=== PATIENT | female | born 1940 | race Caucasian/White ===

== ENCOUNTER 2021-11-11 21:44 | Inpatient (IN) ==
[2021-11-11] MEDS ORDERED: ONDANSETRON 4 MG/2 ML VIAL IV STA (22:11)
[2021-11-11 22:32] LABS: PT Patient Result 10.7 SECS (10.5-12.0); Partial Thromboplastin Time < 20.0 SECS (23.8-32.1)
[2021-11-11 22:42] LABS: Albumin 3.7 G/DL (3.4-5.0); Bilirubin,Total 0.4 MG/DL (0.20-1.00); Calcium 8.5 MG/DL (8.5-10.1); Osmolality,Calculated 277.5 MOS/KG (273-304); Potassium 2.8 MMOL/L (3.5-5.1)
[2021-11-11 23:11] LABS: Basophils # 0.1 10*3/uL (0.0-0.2); Basophils % 0.5 % (0.0-0.8); Eosinophils # 0.1 10*3/uL (0.0-0.87); Eosinophils % 0.8 % (0.00-10.9); Hematocrit 36.9 VOL% (35.7-47.0); Hemoglobin 12.5 GM/DL (12.0-16.0); Immature Granulocytes % 0.5 %; Immature Granulocytes Absolute 0.07 #; Lymphocytes % 19.6 % (21.3-54.2); Mean Corpuscular HGB Conc 33.9 GM/DL (32-36); Mean Corpuscular Volume 97.6 FL (87-102); Mean Platelet Volume 11.3 FL (9.6-12.0); Monocytes % 7.5 % (1.7-12.7); Neutrophils % 71.1 % (38.7-73.9); Platelet Count 252 T/CUMM (130-400); Red Blood Count 3.78 MC/CUMM (3.8-5.5); Red Cell Distribution Width 12.9 % (9.3-17.3); White Blood Count 15.5 T/CUMM (4-12)
[2021-11-11] MEDS ORDERED: diphenhydrAMINE 50 MG/1 ML VIAL IV STA (23:35)
[2021-11-11] MEDS: POTASSIUM CHLORIDE 20 MEQ TABLET PO STA (23:40)
[2021-11-12] MEDS ORDERED: DOCUSATE SODIUM 100 MG CAPSULE PO PRN (00:57)
[2021-11-12] MEDS ORDERED: guaiFENesin/DM ER 600-30 MG TABLET PO PRN (00:57)
[2021-11-12] MEDS ORDERED: NICOTINE 21 MG/24 HR PATCH TRANSDERM PRN (00:57)
[2021-11-12] MEDS ORDERED: DEXTROSE 10% 250 ML BAG IV PRN (00:57)
[2021-11-12] MEDS ORDERED: GLUCAGON 1 MG VIAL IM PRN (00:57)
[2021-11-12] MEDS ORDERED: hydrALAZINE 20 MG/1 ML VIAL IV PRN (00:57)
[2021-11-12] MEDS ORDERED: diphenhydrAMINE CAP 25 MG CAPSULE PO PRN (00:57)
[2021-11-12] MEDS ORDERED: ACETAMINOPHEN 325 MG TABLET PO PRN (00:57)
[2021-11-12] MEDS ORDERED: ZALEPLON 5 MG CAPSULE PO PRN (00:57)
[2021-11-12] MEDS ORDERED: ENOXAPARIN 80 MG/0.8 ML SYRINGE SUBCUT STA (01:03)
[2021-11-12] MEDS ORDERED: LEVOFLOXACIN INJ 750 MG/150 ML PREMIX IV ONE (01:04)
[2021-11-12] MEDS: PROMETHAZINE 25 MG/1 ML VIAL IM PRN ×3 (01:22→16:32)
[2021-11-12] MEDS: POTASSIUM CHLORIDE RIDER 10 MEQ/100 ML PREMIX IV PRN ×3 (01:24→05:02)
[2021-11-12] MEDS: POTASSIUM CHLORIDE 20 MEQ TABLET PO STA (02:08)
[2021-11-12] MEDS: MORPHINE 2 MG/1 ML SYRINGE IV PRN ×2 (02:14→16:24)
[2021-11-12 03:49] LABS: Bacteria,Urine Few /HPF (Few); Hyaline Casts,Urine 1 /LPF (0-3); Mucus,Urine Occasional /LPF (Occasional); RBC,Urine <1 /HPF (0-4)
[2021-11-12 03:50] LABS: Bilirubin,Urine Negative (Negative); Blood, Urine Trace mg/dL (Negative); Glucose,Urine (UA) Negative (Negative); Ketones,Urine Negative (Negative); Nitrite,Urine Negative (Negative); Protein,Urine Negative (Negative); Urine Appearance SL CLOUDY (Clear); Urine Color Yellow (Yellow); Urine Urobilinogen 0.2 eU/dL (<2.0); Urine pH 5.5 (4.5-8.0)
[2021-11-12 05:34] LABS: Calcium 8.6 MG/DL (8.5-10.1); Osmolality,Calculated 271.1 MOS/KG (273-304); Potassium 3.4 MMOL/L (3.5-5.1)
[2021-11-12] MEDS: ONDANSETRON 4 MG/2 ML VIAL IV PRN ×3 (05:39→12:57)
[2021-11-12 05:56] LABS: Basophils # 0.1 10*3/uL (0.0-0.2); Basophils % 0.6 % (0.0-0.8); Eosinophils # 0.1 10*3/uL (0.0-0.87); Eosinophils % 0.6 % (0.00-10.9); Hematocrit 37.4 VOL% (35.7-47.0); Hemoglobin 12.5 GM/DL (12.0-16.0); Immature Granulocytes % 0.5 %; Immature Granulocytes Absolute 0.06 #; Lymphocytes # 1.5 10*3/uL (1.4-4.0); Lymphocytes % 11.7 % (21.3-54.2); Mean Corpuscular HGB Conc 33.4 GM/DL (32-36); Mean Corpuscular Volume 96.6 FL (87-102); Mean Platelet Volume 10.8 FL (9.6-12.0); Monocytes % 7.4 % (1.7-12.7); Neutrophils % 79.2 % (38.7-73.9); Platelet Count 274 T/CUMM (130-400); Red Blood Count 3.87 MC/CUMM (3.8-5.5); Red Cell Distribution Width 12.9 % (9.3-17.3); White Blood Count 12.7 T/CUMM (4-12)
[2021-11-12] MEDS: POTASSIUM CHLORIDE 20 MEQ TABLET PO SCH (08:55)
[2021-11-12] MEDS: PANTOPRAZOLE 40 MG TABLET PO SCH (08:55)
[2021-11-12] MEDS ORDERED: HEPARIN 5,000 UNIT/1 ML VIAL SUBCUT SCH (09:00)
[2021-11-12] MEDS: POTASSIUM CHLORIDE INJ 10 MEQ in SODIUM CHLORIDE 0.9% 1,000 ML IV SCH ×2 (09:30→21:47)
[2021-11-12] MEDS: DILTIAZEM INJ 100 MG in SODIUM CHLORIDE 0.9% 100 ML IV SCH ×2 (09:34→18:57)
[2021-11-12] MEDS: ENOXAPARIN 100 MG/ML SYRINGE SUBCUT SCH (15:28)
[2021-11-13] MEDS: ENOXAPARIN 100 MG/ML SYRINGE SUBCUT SCH ×2 (00:42→13:56)
[2021-11-13] MEDS: DILTIAZEM INJ 100 MG in SODIUM CHLORIDE 0.9% 100 ML IV SCH ×4 (02:38→22:04)
[2021-11-13 06:10] LABS: Calcium 8.8 MG/DL (8.5-10.1); Osmolality,Calculated 275.5 MOS/KG (273-304); Potassium 3.3 MMOL/L (3.5-5.1)
[2021-11-13 06:50] LABS: Basophils # 0.1 10*3/uL (0.0-0.2); Basophils % 0.7 % (0.0-0.8); Eosinophils # 0.1 10*3/uL (0.0-0.87); Eosinophils % 0.6 % (0.00-10.9); Hematocrit 41.3 VOL% (35.7-47.0); Hemoglobin 13.4 GM/DL (12.0-16.0); Immature Granulocytes % 0.6 %; Immature Granulocytes Absolute 0.07 #; Lymphocytes # 1.2 10*3/uL (1.4-4.0); Lymphocytes % 10.2 % (21.3-54.2); Mean Corpuscular HGB Conc 32.4 GM/DL (32-36); Mean Corpuscular Volume 100.2 FL (87-102); Mean Platelet Volume 11.4 FL (9.6-12.0); Monocytes % 7.6 % (1.7-12.7); Neutrophils % 80.3 % (38.7-73.9); Platelet Count 308 T/CUMM (130-400); Red Blood Count 4.12 MC/CUMM (3.8-5.5); Red Cell Distribution Width 13.2 % (9.3-17.3); White Blood Count 12.2 T/CUMM (4-12)
[2021-11-13] MEDS ORDERED: POTASSIUM CHLORIDE 20 MEQ TABLET PO ONE (07:27)
[2021-11-13 07:58] LABS: Platelet Estimate Adequate
[2021-11-13] MEDS: POTASSIUM CHLORIDE 20 MEQ TABLET PO SCH (10:33)
[2021-11-13] MEDS: PANTOPRAZOLE 40 MG TABLET PO SCH (10:34)
[2021-11-13] MEDS ORDERED: SODIUM CHLORIDE 0.9% IV SCH (13:30)
[2021-11-13] MEDS ORDERED: MANNITOL IV SCH (13:30)
[2021-11-13] MEDS: MANNITOL IV SCH ×2 (15:32→22:03)
[2021-11-13] MEDS: POTASSIUM CHLORIDE INJ 10 MEQ in SODIUM CHLORIDE 0.9% 1,000 ML IV SCH (17:16)
[2021-11-14] MEDS: DILTIAZEM INJ 100 MG in SODIUM CHLORIDE 0.9% 100 ML IV SCH ×2 (04:18→12:24)
[2021-11-14] MEDS: MANNITOL IV SCH (05:00)
[2021-11-14 05:49] LABS: Calcium 8.9 MG/DL (8.5-10.1); Osmolality,Calculated 284.8 MOS/KG (273-304); Potassium 3.3 MMOL/L (3.5-5.1)
[2021-11-14 06:03] LABS: Basophils # 0.1 10*3/uL (0.0-0.2); Basophils % 0.6 % (0.0-0.8); Eosinophils # 0.1 10*3/uL (0.0-0.87); Eosinophils % 0.6 % (0.00-10.9); Hematocrit 36.6 VOL% (35.7-47.0); Hemoglobin 12.2 GM/DL (12.0-16.0); Immature Granulocytes % 0.5 %; Immature Granulocytes Absolute 0.06 #; Lymphocytes % 7.9 % (21.3-54.2); Mean Corpuscular HGB Conc 33.3 GM/DL (32-36); Mean Platelet Volume 10.8 FL (9.6-12.0); Monocytes % 7.1 % (1.7-12.7); Neutrophils % 83.3 % (38.7-73.9); Platelet Count 295 T/CUMM (130-400); Red Blood Count 3.66 MC/CUMM (3.8-5.5); Red Cell Distribution Width 13.2 % (9.3-17.3); White Blood Count 12.4 T/CUMM (4-12)
[2021-11-14 08:19] VITALS: BP 148/86
[2021-11-14] MEDS ORDERED: MORPHINE 2 MG/1 ML SYRINGE IV PRN (08:59)
[2021-11-14] MEDS ORDERED: LORazepam 2 MG/1 ML VIAL IV PRN (09:00)
[2021-11-14] MEDS: POTASSIUM CHLORIDE INJ 10 MEQ in SODIUM CHLORIDE 0.9% 1,000 ML IV SCH (12:23)
[2021-11-14] MEDS: POTASSIUM CHLORIDE 20 MEQ TABLET PO SCH (12:25)
[2021-11-14] MEDS: PANTOPRAZOLE 40 MG TABLET PO SCH (12:26)
== END 2021-11-14 10:41 | disposition expired | DRG 308 ==
LOC: EDUNIT# → EDBD → N.ED 21:44 → N.EDINP 21:44 → SUATTDRO 11-12 00:57 → N.EDINP 11-12 02:50 → N.TELEN 11-12 03:56 → SUATTDRO 11-12 18:12
PROVIDERS: ADMIT Internal Medicine; ATTEND Internal Medicine